=== PATIENT | female | born 1960 | race Caucasian/White ===

== ENCOUNTER → 2021-08-31 | Outpatient (CLI) | payer OTHER, BC ==
[2021-09-01 08:14] LABS: RHEUMATOID ARTHRITIS FACTOR <10.0 IU/mL (0.0-13.9)
[2021-09-01 09:14] LABS: VITAMIN D, 25-HYDROXY 36.9 ng/mL (30.0-100.0)
== END ==
LOC: RAD 13:33
PROVIDERS: Nurse Practitioner Family
DX: M79.642 Pain in left hand (principal); M79.641 Pain in right hand; M25.50 Pain in unspecified joint; E55.9 Vitamin D deficiency, unspecified; M79.10 Myalgia, unspecified site
CPT/HCPCS: 36415; 73130; 73560; 82550; 83520; 85652; 86140; 86200; 86431